=== PATIENT | male | born 1950 ===

== ENCOUNTER 2017-11-26 08:13 | Day surgery (SDC) | payer OTHER | END 2017-11-26 12:44 | disposition home or self-care (01) | LOC: AMB-ENDOS 08:13 | DX: D12.3 Benign neoplasm of transverse colon (principal); K57.30 Diverticulosis of large intestine without perforation or abscess without bleeding ==

== ENCOUNTER 2019-01-13 07:11 | Day surgery (SDC) | payer OTHER | END 2019-01-13 12:08 | disposition home or self-care (01) | LOC: AMB-ENDOS 07:11 | DX: K63.5 Polyp of colon (principal) ==